=== PATIENT | female | born 2000 | race Hispanic/Latino ===

== ENCOUNTER 2022-11-19 20:36 | Emergency (ER) | payer OTHER ==
[~2022-11-19] VITALS: Ht 160 cm; Wt 62.0 kg
[2022-11-19 21:56] LABS: BASO % 0.2 % (0.0-1.0); EOS # 0.1 10^3/uL (0.0-0.5); EOS % 1.4 % (0.0-3.0); HEMATOCRIT 38.1 % (36.0-47.0); HEMOGLOBIN 13.2 g/dl (12.0-15.5); LYMPH # 3.4 10^3/uL (1.5-5.0); LYMPH % 39.4 % (24.0-44.0); MEAN CORPUSCULAR HEMOGLOBIN 29.9 pg (27.0-33.0); MEAN CORPUSCULAR HGB CONC 34.6 g/dl (32.0-36.5); MEAN CORPUSCULAR VOLUME 86.4 fl (80.0-96.0); MONO # 0.5 10^3/uL (0.0-0.8); MONO % 6.4 % (2.0-8.0); NEUTROPHILS # 4.4 10^3/uL (1.5-8.5); NEUTROPHILS % 52.2 % (36.0-66.0); PLATELET COUNT, AUTOMATED 227 10^3/uL (150-450); RED BLOOD COUNT 4.41 10^6/uL (4.00-5.40); WHITE BLOOD COUNT 8.5 10^3/uL (4.0-10.0)
[2022-11-19 22:03] LABS: HEMOGLOBIN A1c 4.8 % (4.0-6.0)
[2022-11-19 22:14] LABS: CK-MB VALUE MASS < 1.0 NG/ML (<3.6)
[2022-11-19 22:16] LABS: CPK CREATINE PHOSPHOKINASE 68 U/L (34-145); MB/CK RELATIVE INDEX 1.47 (< OR =4)
[2022-11-19 22:19] LABS: FREE T4 1.23 NG/DL (0.89-1.76)
[2022-11-19 23:15] VITALS: BP 116/76; TEMP 98.4; O2SAT 98
== END 2022-11-19 23:43 | disposition home or self-care (01) ==
LOC: M ED 20:36
DX: R20.2 Paresthesia of skin (principal)

== ENCOUNTER 2023-01-17 10:20 | Emergency (ER) | payer OTHER ==
[~2023-01-17] VITALS: Ht 160 cm; Wt 63.8 kg
[2023-01-17] MEDS ORDERED: ONDANSETRON 4MG ORAL DISINTEGRATING TAB PO ONE (11:30)
[2023-01-17] MEDS ORDERED: ONDA4TAB6 PO (12:35)
[2023-01-17] MEDS ORDERED: BENZ200C70 PO (12:35)
[2023-01-17 12:48] VITALS: BP 106/69; TEMP 97.8; O2SAT 100
== END 2023-01-17 12:50 | disposition home or self-care (01) ==
LOC: M ED 10:20
DX: J06.9 Acute upper respiratory infection, unspecified (principal); B34.8 Other viral infections of unspecified site